=== PATIENT | male | born 1985 | race African-American/Black ===

== ENCOUNTER 2017-06-13 15:53 | Emergency (ER) | payer OTHER ==
[~2017-06-13] VITALS: Ht 200.7 cm; Wt 115.0 kg
[~2017-06-13 15:53] MED LIST: DOXY100T PO; HYDR-3533 PO
[2017-06-13] MEDS ORDERED: SODIUM CHLOR 0.9% 1000 ML INJ 1,000 ML IV SCH (16:04)
[2017-06-13 16:06] VITALS: BP 149/77; PULSE 90; RESP 20; TEMP 98; O2SAT 98
[2017-06-13 16:13] VITALS: O2SAT 98
[2017-06-13] MEDS ORDERED: CEPHALEXIN MONOHYDRATE 500 MG CAP PO ONE (16:15)
[2017-06-13] MEDS ORDERED: TETANUS/DIPHTHERIA TOXOID ADULT 0.5 ML VIAL IM ONE (16:15)
[2017-06-13] MEDS ORDERED: ACETAMINOPHEN 325 MG TAB PO ONE (16:15)
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
[2017-06-13 16:39] LABS: AUTOMATED NEUTROPHIL # 7.1 TH/MM3 (1.8-7.7); BASOPHIL % 0.4 % (0.0-2.0); EOSINOPHIL # 0.1 TH/MM3 (0-0.4); EOSINOPHIL % 0.8 % (0.0-4.0); HEMATOCRIT 46.7 % (39.0-51.0); HEMO FLAGS DIFF FINAL; LYMPH % 16.7 % (9.0-44.0); LYMPHOCYTE # 1.5 TH/MM3 (1.0-4.8); MEAN CELL VOLUME 94.4 FL (80.0-100.0); MEAN CORPUSCULAR HEMOGLOBIN 31.6 PG (27.0-34.0); MEAN CORPUSCULAR HGB CONC 33.4 % (32.0-36.0); NEUT % 77.1 % (16.0-70.0); PLATELET COUNT 167 TH/MM3 (150-450); RED BLOOD COUNT 4.94 MIL/MM3 (4.50-5.90); RED CELL DISTRIBUTION WIDTH 13.4 % (11.6-17.2); WHITE BLOOD COUNT 9.2 TH/MM3 (4.0-11.0)
[2017-06-13 16:45] LABS: APTT (PATIENT) 26.6 SEC (24.3-30.1); PROTHROMBIN TIME - PATIENT 11.4 SEC (9.8-11.6)
--- NOTE | 2017-06-13 16:52 | RADRPT ---
EXAM DATE/TIME: 06/13/2017 16:17 [facility] COMPARISON: No previous studies available for comparison. INDICATIONS : Head pain due to fall, medical clearance. RADIATION DOSE: 56.35 CTDIvol (mGy) ; Patient motion MEDICAL HISTORY : Hypertension. Substance abuse. SURGICAL HISTORY : None. ENCOUNTER: Initial ACUITY: 1 day PAIN SCALE: 5/10 LOCATION: Bilateral cranial TECHNIQUE: Multiple contiguous axial images were obtained of the head. Using automated exposure control and adj ustment of the mA and/or kV according to patient size, radiation dose was kept as low as reasonably a chievable to obtain optimal diagnostic quality images. DICOM format image data is available electro nically for review and comparison. FINDINGS: There is no evidence of intracranial mass or hemorrhage. Brain density is symmetric and normal throug hout. Ventricles are symmetric and normal. There is nothing to suggest acute infarction. There is some radiodense material in the eyebrow region on the right and possible soft tissue disrupt ion in this area. Flecks of radiodense material are also seen overlying the right scalp of undetermin ed origin. There is no evidence of skull fracture. There is minimal fluid in the right maxillary sinu s. CONCLUSION: No acute intracranial injury Deep Rachel MD on June 13, 2017 at 16:47 Board Certified Radiologist. This report was verified electronically.
[2017-06-13 16:56] LABS: ANION GAP 15 MEQ/L (5-15); BICARBONATE 18.1 MEQ/L (21.0-32.0); BLOOD UREA NITROGEN 11 MG/DL (7-18); CHLORIDE 106 MEQ/L (98-107); GLOMERULAR FILTRATION RATE 57 ML/MIN (>89); MAGNESIUM 2.6 MG/DL (1.5-2.5); POTASSIUM 3.8 MEQ/L (3.5-5.1); SODIUM (NA) 139 MEQ/L (136-145)
[2017-06-13 16:59] LABS: CREATINE KINASE 611 U/L (39-308)
--- NOTE | 2017-06-13 17:04 | RADRPT ---
EXAM DATE/TIME: 06/13/2017 16:17 [facility] COMPARISON: No previous studies available for comparison. INDICATIONS : Neck pain due to fall, medical clearance. RADIATION DOSE: 35.33 CTDIvol (mGy) MEDICAL HISTORY : Hypertension. Substance abuse. SURGICAL HISTORY : None. ENCOUNTER: Initial ACUITY: 1 day PAIN SCALE: 4/10 LOCATION: Bilateral neck region. TECHNIQUE: Volumetric scanning of the cervical spine was performed. Multiplanar reconstructions in the sagittal, coronal and oblique axial planes were performed. Using automated exposure control and adjustment o f the mA and/or kV according to patient size, radiation dose was kept as low as reasonably achievable to obtain optimal diagnostic quality images. DICOM format image data is available electronically f or review and comparison. FINDINGS: Vertebral body heights are maintained. Osseous structures are intact without evidence for acute bony fracture. Dens is intact. Sagittal alignment is maintained. There is a normal C1-2 relationship. Face ts are normally aligned. There is no significant prevertebral soft tissue hematoma. No significant ce rvical adenopathy or gross mass. The thyroid appears unremarkable. Visualized lung apices are clear w ithout pneumothorax. CONCLUSION: 1. Unremarkable CT examination of the cervical spine. No acute fracture or subluxation. Garret Riggs MD on June 13, 2017 at 17:01 Board Certified Radiologist. This report was verified electronically.
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
[2017-06-13 17:13] LABS: ACETAMINOPHEN LESS THAN 2.0 MCG/ML (10.0-30.0); ALCOHOL LESS THAN 3 MG/DL (0-5)
[2017-06-13] MEDS ORDERED: CEPH-460 PO (17:41)
--- NOTE | 2017-06-14 05:10 | EKG ---
Date Performed: 06/13/2017 Time Performed: 16:19:40 PTAGE: 32 years EKG: Sinus rhythm POSSIBLE RIGHT VENTRICULAR CONDUCTION DELAY MODERATE T-WAVE ABNORMALITY, CONSIDER LATERAL ISCHEMIA A BNORMAL ECG PREVIOUS TRACING : 05/05/1996 09.11 DOCTOR: Santosh Rose Interpretating Date/Time 06/14/2017 05:05:22
== END 2017-06-13 18:10 ==
LOC: NEPE 15:53
DX: S09.90XA Unspecified injury of head, initial encounter (principal); S00.211A Abrasion of right eyelid and periocular area, initial encounter; R94.31 Abnormal electrocardiogram [ECG] [EKG]; I10 Essential (primary) hypertension; F17.200 Nicotine dependence, unspecified, uncomplicated; Y35.813A Legal intervention involving manhandling, suspect injured, initial encounter; Z23 Encounter for immunization
CPT/HCPCS: 70450; 71010; 72125; 72170; 73552; 80048; 80307; 82550; 82552; 83735; 84484; 85025; 85610; 85730; 90471; 90714; 93005; 96360; 99285; J7030